=== PATIENT | female | born 1965 | race Caucasian/White ===

== ENCOUNTER 2021-12-31 07:49 | Outpatient (CLI) | payer OTHER ==
[~2021-12-31 07:49] MED LIST: ACID REDUCER10 MG; LISINOPRIL10 MG; LISINOPRIL10 MG PO; LISINOPRIL2.5 MG; PAPAYA ENZYME; VISTARIL25 MG PO; VITAMIN D50000 UNIT; [UNRECOGNIZED DRUG - OTHER]
== END 2021-12-31 07:58 | disposition home or self-care (01) ==
LOC: SONOGRAMA 07:49
PROVIDERS: ATTEND Internal Medicine Gastroenterology
DX: R10.13 Epigastric pain (principal)